=== PATIENT | male | born 1965 | race Caucasian/White ===

== ENCOUNTER 2019-12-22 07:26 | Inpatient (IN) ==
[2019-12-22] MEDS ORDERED: CeFAZolin Syr 3,000MG/30 ML 3,000 MG/30 ML SYRINGE IVPB ONE (07:45)
[2019-12-22] MEDS: Ringers Solution, Lactated 1,000 ML IVC SCH ×2 (07:55→11:46)
[2019-12-22] MEDS ORDERED: *HR* Promethazine 25 MG/ML VIAL IVP PRN (08:17)
[2019-12-22] MEDS ORDERED: *HR* OxyCODONE Immed Rel 5 MG TABLET PO PRN ×2 (08:17→13:31)
[2019-12-22] MEDS ORDERED: *HR* HYDROmorphone PF 0.5 MG/0.5 ML SYRINGE IVP PRN (08:17)
[2019-12-22] MEDS ORDERED: Ondansetron 4 MG/2 ML VIAL IVP ONE (08:17)
[2019-12-22] MEDS ORDERED: ROPIVACAINE/PF/NS 0.25% 1 EACH SYRINGE INTRAART ONE ×2 (08:35→09:04)
[2019-12-22] MEDS ORDERED: *HR* Midazolam HCl 2 MG/2 ML VIAL ONE (08:35)
[2019-12-22] MEDS ORDERED: Ropivacaine/PF 0.5% 30 ML VIAL ONE (08:35)
[2019-12-22] MEDS ORDERED: *HR* FentaNYL (PF) 100 MCG/2 ML VIAL ONE (08:35)
[2019-12-22] MEDS ORDERED: Ondansetron 4 MG/2 ML VIAL ONE (09:16)
[2019-12-22] MEDS ORDERED: Lidocaine -MPF 2% 2 ML VIAL ONE (09:16)
[2019-12-22] MEDS ORDERED: Dexamethasone 4 MG/ML VIAL ONE (09:16)
[2019-12-22] MEDS ORDERED: *HR* Succinylcholine 200 MG/10 ML VIAL IVP ONE ×2 (09:16→09:19)
[2019-12-22] MEDS ORDERED: *HR* Propofol 200 MG/20 ML VIAL IVP ONE ×2 (09:17→10:08)
[2019-12-22] MEDS ORDERED: Ethanol\\Acetic Acid\\Na Ace\\Ben 1,000 ML IRRIG.SOLN IR ONE (09:43)
[2019-12-22] MEDS ORDERED: Ondansetron 4 MG/2 ML VIAL IVP PRN (13:31)
[2019-12-22] MEDS ORDERED: *HR* OxyCODONE/APAP 5/325 TABLET PO PRN (13:31)
[2019-12-22] MEDS ORDERED: D5% in Water 1,000 ML IVC PRN (13:31)
[2019-12-22] MEDS ORDERED: Dextrose Gel 15 GM/37.5 ML TUBE PO PRN ×2 (13:31)
[2019-12-22] MEDS ORDERED: Sennosides 8.6 MG TABLET PO PRN (13:31)
[2019-12-22] MEDS ORDERED: Ringers Solution, Lactated 1,000 ML IVC SCH (13:31)
[2019-12-22] MEDS ORDERED: *HR* Dextrose 50 % in Water (Syg) 50 ML SYRINGE IVP PRN (13:31)
[2019-12-22] MEDS ORDERED: Naloxone 0.4 MG/ML INJ IVP PRN (13:31)
[2019-12-22] MEDS ORDERED: MOM Conc 10 ML UD.LIQ PO PRN (13:31)
[2019-12-22] MEDS: Insulin LISPRO 300 UNITS/3 ML VIAL SQ SCH ×2 (16:09→17:53)
[2019-12-22] MEDS ORDERED: *HR* Enoxaparin 30 MG/0.3 ML SYRINGE SQ SCH ×3 (16:15→18:00)
[2019-12-22] MEDS ORDERED: ceFAZolin 3,000 MG in 0.9 % Sodium Chloride 100 ML IVPB SCH ×2 (16:15→18:00)
[2019-12-22 18:01] VITALS: BP 112/76
[2019-12-22] MEDS ORDERED: Insulin LISPRO 300 UNITS/3 ML VIAL SQ SCH (21:00)
[2019-12-23] MEDS ORDERED: allopurinoL 100 MG TABLET PO SCH (09:00)
[2019-12-23] MEDS ORDERED: Metoprolol XL (24 HR) Succ 50 MG TAB.ER.24H PO SCH (09:00)
[2019-12-23] MEDS ORDERED: amLODIPine 5 MG TABLET PO SCH (09:00)
[2019-12-23] MEDS ORDERED: Aspirin 81 MG TAB.CHEW PO SCH (09:00)
== END 2019-12-22 19:55 | disposition home health service (06) | DRG 483 ==
LOC: SAMDAY 07:26 → 3NENU 13:27
PROVIDERS: ADMIT Orthopaedic Surgery; ATTEND Orthopaedic Surgery